=== PATIENT | female | born 1930 | race African-American/Black ===

== ENCOUNTER 2017-12-14 14:06 | Emergency (ER) | payer MEDICARE, OTHER ==
[~2017-12-14] VITALS: Ht 157.5 cm; Wt 52.2 kg
[2017-12-14] MEDS ORDERED: WARF5TAB77 PO (14:17)
[2017-12-14] MEDS ORDERED: LOSA25TA13 PO (14:17)
[2017-12-14] MEDS ORDERED: SANCTURA (14:18)
[2017-12-14] MEDS ORDERED: METH5TAB70 PO (14:20)
[2017-12-14] MEDS ORDERED: CARB-93 PO (14:21)
--- NOTE | 2017-12-14 14:46 | NUR ---
pt resisting going to ct scan. called tammieugher in law, , she will be here soon
[2017-12-14] MEDS: NEOMY/BACITRA/POLYMYXIN B OINT UD PACKET TP ONE ×2 (16:18→17:14)
[2017-12-14] MEDS ORDERED: NEOMY/BACITRA/POLYMYXIN B OINT UD PACKET TP ONE ×2 (16:22→17:20)
--- NOTE | 2017-12-14 17:29 | NUR ---
Patient discharged to home in stable conditon. Written and verbal after care instructions given. Patient verbalizes understanding of instructions.pt son and daughter in law at bedside to take the pt home
[2017-12-14 17:52] VITALS: BP 119/61
== END 2017-12-14 17:30 | disposition home or self-care (01) ==
LOC: ER 14:08
DX: S00.211A Abrasion of right eyelid and periocular area, initial encounter (principal); S09.90XA Unspecified injury of head, initial encounter; I10 Essential (primary) hypertension; Z79.01 Long term (current) use of anticoagulants; W18.30XA Fall on same level, unspecified, initial encounter; Y93.89 Activity, other specified; Y92.89 Other specified places as the place of occurrence of the external cause; Y99.8 Other external cause status
CPT/HCPCS: 70450; 72125; 73610; 99284; A4663

== ENCOUNTER 2019-09-10 08:10 | Emergency (ER) | payer OTHER ==
[~2019-09-10] VITALS: Ht 157.5 cm; Wt 47.6 kg
[~2019-09-10 08:10] MED LIST: CARB-93 PO; LOSA25TA27 PO; METH5TAB70 PO; SANCTURA; WARF5TAB PO
[2019-09-10] MEDS ORDERED: IV NORMAL SALINE 500 ML BAG IV ONE (08:30)
--- NOTE | 2019-09-10 08:45 | NUR ---
Pt BIB [facility], reports pt has altered MS from last night per asst. living staff, BS in field = 94. 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 No distress noted. Pt placed on monitor, EKG done and given to MD, IV 20g started and blood drawn.
[2019-09-10 09:04] LABS: BASOPHILS % (AUTO) 0.7 % (0.0-2.0); EOSINOPHILS % (AUTO) 0.2 % (0.0-7.0); HEMATOCRIT 36.5 % (31.2-41.9); LYMPHOCYTES # (AUTO) 0.4 K/uL (20.0-40.0); LYMPHOCYTES % (AUTO) 6.6 % (20.5-51.5); MEAN CORPUSCULAR HEMOGLOBIN 28.7 uug (24.7-32.8); MEAN CORPUSCULAR HGB CONC 33 g/dL (32.3-35.6); MEAN CORPUSCULAR VOLUME 87.4 fL (75.5-95.3); MONOCYTES # (AUTO) 0.7 K/uL (2.0-10.0); MONOCYTES % (AUTO) 11.1 % (0.0-11.0); NEUTROPHILS # (AUTO) 5.2 K/uL (1.8-8.9); NEUTROPHILS % (AUTO) 81.4 % (38.5-71.5); PLATELET COUNT (AUTO) 195 K/uL (179-408); RED BLOOD CELL COUNT(AUTO) 4.18 MIL/uL (3.63-4.92); WHITE BLOOD COUNT (AUTO) 6.4 K/uL (3.8-11.8)
[2019-09-10] MEDS ORDERED: FLUT16SP BNOSTRILS (09:06)
[2019-09-10] MEDS ORDERED: LACT-51 PO (09:06)
[2019-09-10] MEDS ORDERED: ACET-73 PO (09:06)
[2019-09-10] MEDS ORDERED: TROS20TA3 PO (09:06)
[2019-09-10] MEDS ORDERED: CYAN-51 PO (09:06)
[2019-09-10 09:25] LABS: ALANINE AMINOTRANSFERASE 6 U/L (14-59); ALKALINE PHOSPHATASE 116 U/L (50-136); ASPARTATE AMINOTRANSFERASE 25 U/L (15-37); BILIRUBIN,DIRECT 0.3 mg/dL (0.0-0.2); BILIRUBIN,TOTAL 0.9 mg/dL (0.2-1.0); CARBON DIOXIDE 24 mmol/L (21-32); CHLORIDE 101 mmol/L (98-107); GLUCOSE 89 mg/dL (74-106); POTASSIUM 4.4 mmol/L (3.5-5.1); TOTAL PROTEIN, SERUM 7.1 g/dL (6.4-8.2); UREA NITROGEN, BLOOD 34 mg/dL (7-18)
--- NOTE | 2019-09-10 09:56 | NUR ---
Per MD, performed in/out catheterization, using sterile technique, obtained urine sample, and given to labor training manager with covid nasal swab.
[2019-09-10 10:09] LABS: *BLOOD, URINE NEGATIVE (NEGATIVE); *CLARITY,URINE SLIGHTLY CLOUDY (CLEAR); *KETONES,URINE 1+ (NEGATIVE); *UROBILINOGEN,URINE 0.2 E.U./dl (NORMAL); LEUKOCYTE ESTERASE ,URINE NEGATIVE (NEGATIVE); NITRITE, URINE NEGATIVE (NEGATIVE); UGLUCOSE NEGATIVE (NEGATIVE)
[2019-09-10 10:10] LABS: *BILIRUBIN,URIN 1+ (NEGATIVE); *COLOR,URINE DARK YELLOW (YELLOW)
--- NOTE | 2019-09-10 10:14 | NUR ---
After IV fluid finished, pt is A&Ox3, conversing, and answering questions.
[2019-09-10 10:18] LABS: RBC,URINE 0-3 /HPF (0-3)
[2019-09-10 10:19] LABS: WBC,URINE 0-3 /HPF (0-3)
[2019-09-10 10:20] LABS: MUCUS,URINE FEW /LPF (0-FEW); SQUAMOUS EPITHELIAL CELL,UR MODERATE /HPF (NONE SEEN)
--- NOTE | 2019-09-10 10:36 | NUR ---
Called Kevin, , Holli, master data analyst, to arrange for Basic EMT transport for pt going back to her facility, [place]. ETA roughly 1670.
--- NOTE | 2019-09-10 10:43 | NUR ---
Called [facility] to give report, nurses busy, l/m, they WCB.
[2019-09-10 10:48] LABS: BACTERIA,URINE FEW /HPF (NONE SEEN)
--- NOTE | 2019-09-10 11:38 | NUR ---
Called report to Nadiya -Jayme Grady. Removed IV intact,, site okay, bandaged. Gave pt's d/c instructions, lab results, and report to EMT's. Pt transported.
== END 2019-09-10 11:51 ==
LOC: ER 08:10
DX: E86.0 Dehydration (principal); G93.40 Encephalopathy, unspecified; J98.11 Atelectasis; E04.9 Nontoxic goiter, unspecified; Z79.01 Long term (current) use of anticoagulants; G20 Parkinson's disease; I11.9 Hypertensive heart disease without heart failure; G31.9 Degenerative disease of nervous system, unspecified; I67.2 Cerebral atherosclerosis; R40.2212 Coma scale, best verbal response, none, at arrival to emergency department; R40.2352 Coma scale, best motor response, localizes pain, at arrival to emergency department; Z66 Do not resuscitate
CPT/HCPCS: 36415; 70450; 71045; 80048; 80076; 81001; 83605; 84145; 84484; 85025; 85730; 87040 ×2; 87086; 93005; 99285; U0003; 70030-TC; A4663; C1758; J7040

== ENCOUNTER 2019-09-17 14:58 | Emergency (ER) | payer OTHER ==
[~2019-09-17] VITALS: Ht 162.6 cm; Wt 53.1 kg
[~2019-09-17 14:58] MED LIST changes: +ACET-73 PO; +CYAN-51 PO; +FLUT16SP BNOSTRILS; +LACT-51 PO; -SANCTURA; +TROS20TA3 PO
[2019-09-17] MEDS ORDERED: LIDOCAINE 1%-EPI 1:100,000 20 ML VIAL TP ONE (15:00)
--- NOTE | 2019-09-17 16:53 | NUR ---
pt son requesting that the pt be sent to [place] for follow up. notified.
--- NOTE | 2019-09-17 17:00 | NUR ---
called [facility].
[2019-09-17 17:11] LABS: BASOPHILS % (AUTO) 0.6 % (0.0-2.0); EOSINOPHILS % (AUTO) 0.2 % (0.0-7.0); HEMATOCRIT 36.9 % (31.2-41.9); HEMOGLOBIN 12.1 g/dL (10.9-14.3); LYMPHOCYTES # (AUTO) 0.4 K/uL (20.0-40.0); LYMPHOCYTES % (AUTO) 7.8 % (20.5-51.5); MEAN CORPUSCULAR HEMOGLOBIN 28.5 uug (24.7-32.8); MEAN CORPUSCULAR HGB CONC 33 g/dL (32.3-35.6); MEAN CORPUSCULAR VOLUME 87.1 fL (75.5-95.3); MONOCYTES # (AUTO) 0.5 K/uL (2.0-10.0); MONOCYTES % (AUTO) 10.3 % (0.0-11.0); NEUTROPHILS # (AUTO) 3.8 K/uL (1.8-8.9); NEUTROPHILS % (AUTO) 81.1 % (38.5-71.5); PLATELET COUNT (AUTO) 200 K/uL (179-408); RED BLOOD CELL COUNT(AUTO) 4.24 MIL/uL (3.63-4.92); WHITE BLOOD COUNT (AUTO) 4.7 K/uL (3.8-11.8)
--- NOTE | 2019-09-17 17:16 | NUR ---
dr. moreno from [facility] called and talked to dr. lester.
--- NOTE | 2019-09-17 17:18 | NUR ---
pt son was informed about [place] ccepting the pt.
[2019-09-17 17:22] LABS: CARBON DIOXIDE 24 mmol/L (21-32); CHLORIDE 101 mmol/L (98-107); CREATININE 1.9 mg/dL (0.6-1.3); GLUCOSE 90 mg/dL (74-106); UREA NITROGEN, BLOOD 39 mg/dL (7-18)
--- NOTE | 2019-09-17 19:02 | NUR ---
PATIENT NOTED OUT OFF BED WAS HELP BACK BY DARRION BARRERA. PATIENT A & O X1.
--- NOTE | 2019-09-17 19:07 | NUR ---
PATIENT NOTED OUT OFF BED WAS HELP BACK BY DARRION BARRERA. PATIENT A & O X1 UNSTEADY GAIT. HAND DRAWER IN HELPER WAS CALLED REQUEST SITTER FOR PATIENT SAFETY. NON AVAILABLE REQUESTED SECURITY NO AVAILABLE AT THIS TIME. WILL CONTINUE TO MONITOR PATIENT FOR SAFETY. NO S/S ANY DISTRESS NOTED.
--- NOTE | 2019-09-17 19:14 | NUR ---
PATIENT CLIMBING OUT OF BED WAS REORIENTED AND PLACE BACK BY HAKANI.
[2019-09-17] MEDS ORDERED: IV NS 1000 ML 1,000 ML IV ONE (19:15)
[2019-09-17] MEDS ORDERED: LORAZEPAM 2 MG/1 ML VIAL IV ONE (19:30)
[2019-09-17] MEDS ORDERED: LORAZEPAM 2 MG/1 ML VIAL ONE (19:39)
--- NOTE | 2019-09-17 19:52 | NUR ---
[facility] CALLED [facility]SF[facility] REPORT FOR [facility] LABOR OPERATOR TIME 2044.
--- NOTE | 2019-09-17 19:53 | NUR ---
PATIENT CLIMBING OUT OF BED WAS REORIENTED AND PLACE BACK. WILL CONTINUE TO MONITOR
--- NOTE | 2019-09-17 20:08 | NUR ---
CALLED [facility] REPORT TO BERTO BARRERA FROM [facility] [phone].
--- NOTE | 2019-09-17 20:10 | NUR ---
PATIENT SITTING AT EDGE OF BED WAS PLACED BACK. FALL PRECAUTIONS CONTINUE. NO S/S ANY DISTRESS.
--- NOTE | 2019-09-17 20:38 | NUR ---
[facility] CALLED [facility]SPORTATION WILL BE LATE CHANGE TO 2104.
--- NOTE | 2019-09-17 20:52 | NUR ---
PATIENT OUT OF BED PLACE BACK.FALL PRECAUTIONS DONE. IV FLUID STILL INFUSION.
--- NOTE | 2019-09-17 20:57 | NUR ---
1:1 DESIGN ASSISTANT AT BEDSIDE FOR PATIENT SAFETY.
[2019-09-17] MEDS ORDERED: LABETALOL HCL 100 MG/20 ML VIAL IV ONE (21:30)
--- NOTE | 2019-09-17 21:30 | NUR ---
Patient is resting comfortably in bed with eyes closed. Fall precautions done. WIll continue to monitor.
--- NOTE | 2019-09-17 21:38 | NUR ---
1:1 HOB MACHINE OPERATOR VASHTI AT BEDSIDE FOR PATIENT SAFETY.
--- NOTE | 2019-09-17 21:56 | NUR ---
REPORT GIVEN TO [facility]. PATIENT IV HL.
== END 2019-09-17 22:05 | disposition short-term general hospital (02) ==
LOC: EDSEX → EDBD → ER 14:58 → MERGE 14:58 → ER 22:05
DX: S06.9X0A Unspecified intracranial injury without loss of consciousness, initial encounter (principal); S02.5XXA Fracture of tooth (traumatic), initial encounter for closed fracture; S01.511A Laceration without foreign body of lip, initial encounter; W18.30XA Fall on same level, unspecified, initial encounter; E04.9 Nontoxic goiter, unspecified; M84.48XA Pathological fracture, other site, initial encounter for fracture; R29.6 Repeated falls; Z79.01 Long term (current) use of anticoagulants; R55 Syncope and collapse; Z86.73 Personal history of transient ischemic attack (TIA), and cerebral infarction without residual deficits; Z86.718 Personal history of other venous thrombosis and embolism; Z66 Do not resuscitate; I10 Essential (primary) hypertension; G20 Parkinson's disease; F02.80 Dementia in other diseases classified elsewhere, unspecified severity, without behavioral disturbance, psychotic disturbance, mood disturbance, and anxiety; D68.32 Hemorrhagic disorder due to extrinsic circulating anticoagulants; T45.515A Adverse effect of anticoagulants, initial encounter; Y92.89 Other specified places as the place of occurrence of the external cause
CPT/HCPCS: 13151; 36415; 70450; 71045; 72125; 80048; 84484; 85025; 85730; 86850; 86900; 86901; 93005; 96361; 96374; 99285; J2060; J3490; 70030-TC; A4217; A4663; J7030